=== PATIENT | male | born 1930 | race Caucasian/White ===

== ENCOUNTER 2016-08-23 16:14 | Emergency (ER) | payer MEDICARE ==
[~2016-08-23] VITALS: Ht 177.8 cm; Wt 67.1 kg
--- NOTE | 2016-08-23 16:30 | NUR ---
PT [facility] FOR SOB, COUGH, SATING AT 93% RA. PT AAOX2. NOTED ANXIOUS. NAD NOTED. VSS. SAFETY AND COMFORT MEASURES PROVIDED. WILL MONITOR.
--- NOTE | 2016-08-23 16:40 | NUR ---
IV ACCESS STARTED.
--- NOTE | 2016-08-23 17:07 | NUR ---
ELIUD AT BS.
--- NOTE | 2016-08-23 17:20 | NUR ---
CARDIOGRAPH OPERATOR AT FOR BLOOD DRAW
[2016-08-23 17:34] LABS: BASOPHILS # (AUTO) 0.1 /CMM (0.0-0.2); BASOPHILS % (AUTO) 1.1 % (0.0-2.0); EOSINOPHILS # (AUTO) 0.1 /CMM (0.0-0.7); EOSINOPHILS % (AUTO) 1.2 % (0.0-6.0); HEMATOCRIT 44 % (39-51); HEMOGLOBIN 14.3 g/dL (13.5-17.5); LYMPHOCYTES # (AUTO) 2.1 /CMM (0.8-4.8); LYMPHOCYTES % (AUTO) 24.4 % (20.0-44.0); MEAN CORPUSCULAR HEMOGLOBIN 29 PG (26.0-33.0); MEAN CORPUSCULAR HGB CONC 33 g/dl (31.0-36.0); MEAN CORPUSCULAR VOLUME 89 fL (80-96); MONOCYTES # (AUTO) 1.2 /CMM (0.1-1.30); MONOCYTES % (AUTO) 13.7 % (2.0-12.0); NEUTROPHILS % (AUTO) 59.6 % (43.0-81.0); PLATELET COUNT (AUTO) 220 /CMM (150-450); RDW COEFFICIENT OF VARIATION 13.4 (11.5-15.0); RED BLOOD CELL COUNT(AUTO) 4.91 MIL/uL (4.5-6.0); WHITE BLOOD COUNT (AUTO) 8.5 K/uL (4.3-11.0)
[2016-08-23 17:41] LABS: CALCIUM, SERUM 8.7 mg/dL (8.5-10.1); CARBON DIOXIDE 30 mmol/L (21-32); CHLORIDE 108 mmol/L (98-107); CREATININE 0.8 mg/dL (0.6-1.3); GLUCOSE 101 mg/dL (74-106); POTASSIUM 4.1 mmol/L (3.5-5.1); SODIUM SERUM 142 mmol/L (136-145); UREA NITROGEN, BLOOD 18 mg/dL (7-18)
[2016-08-23 17:49] LABS: TROPONIN I < 0.017 ng/mL (0.00-0.056)
--- NOTE | 2016-08-23 18:34 | NUR ---
CALLED NURSING SUP. FOR MS BED
--- NOTE | 2016-08-23 19:22 | NUR ---
CALLED, LEFT MESSAGE ON VOICEMAIL
--- NOTE | 2016-08-23 19:31 | NUR ---
jus jane talking to dr. radha bravot admission.
--- NOTE | 2016-08-23 19:32 | NUR ---
per dr. radha zhang and f/u with him in his office.
--- NOTE | 2016-08-23 19:35 | NUR ---
CALLED [facility] FOR TRANSPORT BACK TO [facility], ETA 1 HOUR
--- NOTE | 2016-08-23 21:16 | NUR ---
transport at bedside report given to emt transport.
[2016-08-23 21:17] VITALS: BP 137/83
== END 2016-08-23 21:17 | disposition home or self-care (01) ==
LOC: ER 16:21
DX: J18.9 Pneumonia, unspecified organism (principal); F03.90 Unspecified dementia, unspecified severity, without behavioral disturbance, psychotic disturbance, mood disturbance, and anxiety; I10 Essential (primary) hypertension; Z86.73 Personal history of transient ischemic attack (TIA), and cerebral infarction without residual deficits
CPT/HCPCS: 36415; 71010-TC; 80048-TC; 84484-TC; 85025-TC; 87081-TC; A4606; Z7610

== ENCOUNTER 2016-09-21 22:25 | Inpatient (IN) | payer MEDICARE ==
[~2016-09-21] VITALS: Ht 177.8 cm; Wt 59.6 kg
--- NOTE | 2016-09-21 22:30 | NUR ---
PT IZZY WINTER FROM [facility] FOR O2 SAT OF 88. PT AO TO NAME. RR EVEN AND UNLABORED. NO SOB NOTED. NO NVD, NO NAD, PT NOT DIAPHORETIC. PT GOWNED AND PLACED ON MONITOR WAITING FOR MD UMANZOR.
--- NOTE | 2016-09-21 22:50 | NUR ---
XRAY AT BEDSIDE
[2016-09-21] MEDS ORDERED: ASCO500T10 PO (22:53)
[2016-09-21] MEDS ORDERED: TEMA15CA PO (22:53)
[2016-09-21] MEDS ORDERED: HYDR-3326 PO (22:53)
[2016-09-21] MEDS ORDERED: OLAN10TA3 PO (22:53)
[2016-09-21] MEDS ORDERED: METO25TA6 PO (22:53)
[2016-09-21] MEDS ORDERED: ZINC220C6 PO (22:53)
[2016-09-21] MEDS ORDERED: METH5TAB6 PO (22:53)
[2016-09-21] MEDS ORDERED: MULT-70 PO (22:53)
[2016-09-21] MEDS ORDERED: CEPH-570 PO (22:53)
[2016-09-21] MEDS ORDERED: ASPI-991 PO (22:53)
[2016-09-21 23:02] LABS: BASOPHILS # (AUTO) 0.1 /CMM (0.0-0.2); EOSINOPHILS # (AUTO) 0.1 /CMM (0.0-0.7); EOSINOPHILS % (AUTO) 0.6 % (0.0-6.0); HEMATOCRIT 40 % (39-51); LYMPHOCYTES # (AUTO) 3.7 /CMM (0.8-4.8); LYMPHOCYTES % (AUTO) 28.6 % (20.0-44.0); MEAN CORPUSCULAR HEMOGLOBIN 29 PG (26.0-33.0); MEAN CORPUSCULAR HGB CONC 32 g/dl (31.0-36.0); MEAN CORPUSCULAR VOLUME 88 fL (80-96); MONOCYTES # (AUTO) 1.1 /CMM (0.1-1.30); MONOCYTES % (AUTO) 8.2 % (2.0-12.0); NEUTROPHILS % (AUTO) 61.6 % (43.0-81.0); PLATELET COUNT (AUTO) 329 /CMM (150-450); RDW COEFFICIENT OF VARIATION 13.4 (11.5-15.0); RED BLOOD CELL COUNT(AUTO) 4.57 MIL/uL (4.5-6.0); WHITE BLOOD COUNT (AUTO) 12.9 K/uL (4.3-11.0)
[2016-09-21 23:13] LABS: CALCIUM, SERUM 8.6 mg/dL (8.5-10.1); CARBON DIOXIDE 31 mmol/L (21-32); CHLORIDE 108 mmol/L (98-107); CREATININE 0.9 mg/dL (0.6-1.3); GLUCOSE 134 mg/dL (74-106); POTASSIUM 4.4 mmol/L (3.5-5.1); SODIUM SERUM 145 mmol/L (136-145); UREA NITROGEN, BLOOD 14 mg/dL (7-18)
[2016-09-21 23:16] LABS: INR 1.07 (0.87-1.13); PROTHROMBIN TIME 11.5 SECS (9.5-12.7)
[2016-09-21 23:19] LABS: TROPONIN I < 0.017 ng/mL (0.00-0.056)
[2016-09-21 23:24] LABS: LACTIC ACID 2.6 mmol/L (0.4-2.0)
[2016-09-21 23:27] LABS: ALANINE AMINOTRANSFERASE 19 U/L (12-78); ALBUMIN 2.2 g/dL (3.4-5.0); ALKALINE PHOSPHATASE 78 U/L (46-116); ASPARTATE AMINOTRANSFERASE 19 U/L (15-37); B-TYPE NATRIURETIC PEPTIDE 843 PG/ML (0-125); BILIRUBIN,DIRECT 0.1 mg/dL (0.0-0.2); BILIRUBIN,TOTAL 0.7 mg/dL (0.2-1.0)
[2016-09-21] MEDS ORDERED: LIDOCAINE 2% JEL UROJET 10 ML MM ONE (23:51)
[2016-09-22] VITALS (8 sets, daily range): BP systolic 98–139; BP diastolic 53–67
[2016-09-22] MEDS ORDERED: LIDOCAINE 2% JEL UROJET 10 ML MM ONE
--- NOTE | 2016-09-22 | NUR ---
URINE COLLECTED. SENT TO LAB
[2016-09-22 00:12] LABS: APPEARANCE,URINE TURBID (CLEAR); BILIRUBIN,URINE NEGATIVE (NEGATIVE); BLOOD, URINE 3+ Ery/uL (NEGATIVE); COLOR,URINE YELLOW (YELLOW); KETONES,URINE NEGATIVE (NEGATIVE); LEUKOCYTE ESTERASE ,URINE NEGATIVE (NEGATIVE); NITRITE, URINE NEGATIVE (NEGATIVE); PROTEIN,URINE 1+ mg/dl (NEGATIVE); UGLUCOSE NEGATIVE (NEGATIVE); UROBILINOGEN,URINE 0.2 EU/dL (0.2)
[2016-09-22 00:20] LABS: ADD URINE CULTURE NO; BACTERIA,URINE Rare /HPF (None Seen); RBC,URINE 51-80 /HPF (0-2); SQUAMOUS EPITHELIAL CELL,UR Few /HPF (None Seen)
--- NOTE | 2016-09-22 00:48 | NUR ---
REPORT GIVEN TO [facility] VILLARREAL FOR TELE BED 328-1
--- NOTE | 2016-09-22 01:24 | NUR ---
PT TRASNFERED PER ACLS PROTOCOL.
--- NOTE | 2016-09-22 01:30 | NUR ---
RN NOTES: 0126AM PATIENT WAS ADMITTED FROM ER VIA GURNEY ACCOMPANIED BY RN WITH DX;CHF EXACERBATION, CHIEF COMPLAIN OF DESATURATION,O2 SAT DROP TO 88%,HE WAS FROM [facility] ON AT 3-4L/MIN VIA NASAL CANNULA,SPO2 97%, NO SIGN OF RESPIRATORY DISTRESS NOTED AT THIS TIME,TELEMETRY PATIENT, ON BEHAVIORAL SCIENCES DEPARTMENT CHAIR,A.FIB RATE-90(IRREGULAR),A/OX1,WITH PERIODS OF FORGETFULNESS, UNABLE TO RECALL HISTORY UPON INTERVIEW, ABLE TO MAKE NEEDS KNOWN, HIGH RISK FOR FALL;CALL LIGHT WITH IN REACH,FALL, SAFETY AND ASPIRATION PRECAUTION OBSERVE.IV CANNULA ON THE LEFT AC G#20,BODY ASSESSMENT DONE;EDEMA ON RLE(++),LLE(+),MULTIPLE SKIN DISCOLORATION AND OLD SCABS ON BUE, MULTIPLE BROWN PIGMENTATION ON THE ENTIRE BACK AND BOTH LOWER EXTREMITY, SKIN TEAR ON PEG, DISCOLORATION AND SCABS ON THE CHEST AREA AND LEFT ELBOW, BLANCHABLE REDNESS ON THE SACROCOCCYX AREA, REDNESS ON THE PENILE AREA, LEFT HEEL DISCOLORATION(BLACKISH/PURPLE) AND OPEN SORE ON THE RIGHT ANKLE.WILL REFER TO WOUND NURSE FOR FURTHER EVALUATION AND TREATMENT.
[2016-09-22] MEDS ORDERED: FUROSEMIDE 40 MG/4 ML VIAL ONE (02:37)
[2016-09-22] MEDS: FUROSEMIDE 40 MG/4 ML VIAL IV SCH ×5 (02:53→21:43)
[2016-09-22] MEDS ORDERED: IPRATROPIUM NEB FS 0.5 MG/2.5 ML AMPUL.NEB NEB PRN (03:00)
[2016-09-22] MEDS ORDERED: ALBUTEROL FS 2.5 MG/3 ML VIAL.NEB NEB PRN (03:00)
--- NOTE | 2016-09-22 03:06 | NUR ---
RN NOTES; MARLENY GIVEN,BP-122/65 OR-87, ON CLOSE MONITORING.CALL LIGHT WITHIN REACH.
--- NOTE | 2016-09-22 05:05 | NUR ---
RN NOTES; SLEEP WELL, NO CALLS MADE, NO SIGN OF PAIN OR RESPIRATORY DISCOMFORT, LATEST BP-139/63 HI-80 SPO2-98%,CALL LIGHT WITHIN REACH.KEPT IN COMFORTABLE POSITION.
--- NOTE | 2016-09-22 06:46 | NUR ---
RN NOTES; NO RESPIRATORY DISTRESS NOTED FROM THE TIME OF ADMISSION, KEEP ON MONITOR,TELE-A.FIB. RATE RANGE FROM 90-100,NO PAIN OR DISCOMFORT,ENDORSED TO NEXT SHIFT FOR CONTINUITY OF CARE, CALL LIGHT WITHIN REACH, BED LOW AND LOCK,FALL PRECAUTION OBSERVED.
--- NOTE | 2016-09-22 07:30 | NUR ---
AMMONIA SOLUTION PREPARER NOTES RECEIVED PT ON BED, ASLEEP BUT EASILY AROUSABLE, BREATHING EVEN AND NON LABORED. NO S/S OF ANY RESPIRATORY DISTRESS OR SOB NOTED. WITH O2 AT 2LPM VIA NC O2 SAT 97%. WITH LAC #18 INTACT AND PATENT. CALL LIGHT WITHIN REACH, WILL CONTINUE TO MONITOR.
[2016-09-22] MEDS ORDERED: CEPHALEXIN MONOHYDRATE 500 MG CAPSULE PO SCH (09:00)
--- NOTE | 2016-09-22 09:00 | NUR ---
MS RN NOTES ALL DUE MEDS GIVEN. S/B DR. MIX WITH NEW ORDERS MADE AND CARRIED OUT.
[2016-09-22 09:19] LABS: BASOPHILS # (AUTO) 0.1 /CMM (0.0-0.2); BASOPHILS % (AUTO) 0.6 % (0.0-2.0); EOSINOPHILS # (AUTO) 0.1 /CMM (0.0-0.7); EOSINOPHILS % (AUTO) 0.6 % (0.0-6.0); HEMATOCRIT 39 % (39-51); HEMOGLOBIN 12.6 g/dL (13.5-17.5); LYMPHOCYTES % (AUTO) 19.9 % (20.0-44.0); MEAN CORPUSCULAR HEMOGLOBIN 29 PG (26.0-33.0); MEAN CORPUSCULAR HGB CONC 33 g/dl (31.0-36.0); MEAN CORPUSCULAR VOLUME 89 fL (80-96); MONOCYTES # (AUTO) 1.3 /CMM (0.1-1.30); MONOCYTES % (AUTO) 12.7 % (2.0-12.0); NEUTROPHILS # (AUTO) 6.7 /CMM (1.8-8.9); NEUTROPHILS % (AUTO) 66.2 % (43.0-81.0); PLATELET COUNT (AUTO) 279 /CMM (150-450); RDW COEFFICIENT OF VARIATION 13.4 (11.5-15.0); RED BLOOD CELL COUNT(AUTO) 4.36 MIL/uL (4.5-6.0); WHITE BLOOD COUNT (AUTO) 10.1 K/uL (4.3-11.0)
[2016-09-22] MEDS: MULTIVITAMINS,THERAPEUTIC 1 UDTAB TABLET PO SCH (09:30)
[2016-09-22] MEDS: ASCORBIC ACID 500 MG TABLET PO SCH ×2 (09:30→17:25)
[2016-09-22] MEDS: ASPIRIN EC 81 MG TABLET.DR PO SCH (09:30)
[2016-09-22] MEDS: METHIMAZOLE (5MG) 5 MG TABLET PO SCH (09:30)
[2016-09-22] MEDS: ZINC SULFATE 220 MG CAPSULE PO SCH (09:30)
[2016-09-22] MEDS: METOPROLOL TARTRATE 25 MG TABLET PO SCH ×2 (09:31→17:00)
[2016-09-22] MEDS: HYDROCODONE/APAP 5/325MG 1 EACH TABLET PO SCH ×2 (09:31→17:24)
[2016-09-22 09:59] LABS: CALCIUM, SERUM 8.3 mg/dL (8.5-10.1); CREATININE 0.8 mg/dL (0.6-1.3); MAGNESIUM 2.1 mg/dL (1.8-2.4); PHOSPHORUS 3.4 mg/dL (2.5-4.9)
[2016-09-22] MEDS ORDERED: FUROSEMIDE 40 MG/4 ML VIAL IV SCH (11:00)
[2016-09-22 11:20] LABS: CHOLESTEROL 134 mg/dL (<200); HDL CHOLESTEROL 28 mg/dL (40-60); LDL 85 mg/dL (0-99); THYROID STIMULATING HORMONE 3.247 uIU/mL (0.358-3.74); TRIGLYCERIDES 72 mg/dL (30-150); TROPONIN I < 0.017 ng/mL (0.00-0.056)
[2016-09-22] MEDS: ENOXAPARIN SODIUM 40 MG/0.4 ML DISP.SYRIN SQ SCH (11:44)
[2016-09-22] MEDS: CEPHALEXIN MONOHYDRATE 500 MG CAPSULE PO SCH ×3 (12:40→21:39)
[2016-09-22] MEDS ORDERED: PIPERACILLIN /TAZOBACTAM 3.375 G in IV D5W 50 ML IV SCH (13:00)
[2016-09-22] MEDS ORDERED: SECONDARY IV SET 1 EA INFUS.SET MC ONE (13:05)
[2016-09-22] MEDS ORDERED: IV SET PRIMARY PUMP SET 1 EA INFUS.SET MC ONE (13:05)
[2016-09-22] MEDS ORDERED: IV NS 0.9% 250 ML IV ONE (13:05)
[2016-09-22] MEDS: PIPERACILLIN /TAZOBACTAM 3.375 G in IV D5W 50 ML IV SCH ×2 (13:38→17:27)
--- NOTE | 2016-09-22 15:00 | NUR ---
TEAM TRUCK DRIVER NOTES PATIENT TURN AND REPOSITION Q2H FOR COMFORT. MADE HIM COMFORTABLE CLEAN AND DRY. WILL CONTINUE TO MONITOR.
--- NOTE | 2016-09-22 18:00 | NUR ---
INDUSTRIAL ROOF PLUMBER NOTES LASIX 40 MG IV HELD, BP 101/56.
--- NOTE | 2016-09-22 18:00 | NUR ---
PAPER CONE GRADER NOTES SON CJ VERBALIZED UNDERSTANDING ON THE PROCEDURE.
--- NOTE | 2016-09-22 18:00 | NUR ---
BOARDER MACHINE NOTES PATIENT FOR ULTRASOUND GUIDED THORACENTESIS RIGHT LUNG TOMORROW. OBTAINED VERBAL CONSENT FROM HIS SON CJ.
--- NOTE | 2016-09-22 19:30 | NUR ---
COMMISSARY WORKER INITIAL NOTE RECEIVED PT AWAKE AND ALERT, ORIENTED X1, ABLE TO VERBALIZE SIMPLE NEEDS, NO PAIN OR RESPIRATORY DISTRESS NOTED DURING PHYSICAL ASSESSMENT, PT CLEAN/DRY AND COMFORTABLE, WILL ATTEND TO NEEDS HOURLY AND NEEDED.
--- NOTE | 2016-09-22 19:33 | NUR ---
CLINIC COORDINATOR NOTES ENDORSED TO INCOMING SHIFT FOR CONTINUITY OF CARE. NEEDS ATTENDED AND ANTICIPATED.
[2016-09-22] MEDS: OLANZAPINE 10 MG TABLET PO SCH (21:39)
[2016-09-22] MEDS ORDERED: TEMAZEPAM 15 MG CAPSULE PO SCH (22:00)
[2016-09-23] VITALS (8 sets, daily range): BP systolic 96–124; BP diastolic 52–77
[2016-09-23] MEDS: PIPERACILLIN /TAZOBACTAM 3.375 G in IV D5W 50 ML IV SCH ×5 (00:22→23:21)
--- NOTE | 2016-09-23 06:59 | NUR ---
FINANCIAL CENTER MANAGER CLOSING NOTE PT REMAINED STABLE DURING CASTING HOUSE LABORER, NO SIGNIFICANT CHANGES NOTED, WILL ENDORSE TO INCOMING NURSE FOR FCO.
[2016-09-23 07:05] LABS: BASOPHILS % (AUTO) 0.5 % (0.0-2.0); EOSINOPHILS # (AUTO) 0.1 /CMM (0.0-0.7); EOSINOPHILS % (AUTO) 1.5 % (0.0-6.0); HEMATOCRIT 38 % (39-51); HEMOGLOBIN 12.2 g/dL (13.5-17.5); LYMPHOCYTES # (AUTO) 1.8 /CMM (0.8-4.8); LYMPHOCYTES % (AUTO) 20.2 % (20.0-44.0); MEAN CORPUSCULAR HEMOGLOBIN 29 PG (26.0-33.0); MEAN CORPUSCULAR HGB CONC 32 g/dl (31.0-36.0); MEAN CORPUSCULAR VOLUME 89 fL (80-96); MONOCYTES % (AUTO) 10.9 % (2.0-12.0); NEUTROPHILS % (AUTO) 66.9 % (43.0-81.0); PLATELET COUNT (AUTO) 284 /CMM (150-450); RDW COEFFICIENT OF VARIATION 13.5 (11.5-15.0); RED BLOOD CELL COUNT(AUTO) 4.27 MIL/uL (4.5-6.0)
[2016-09-23 07:11] LABS: ALANINE AMINOTRANSFERASE 15 U/L (12-78); ALBUMIN 1.9 g/dL (3.4-5.0); ALKALINE PHOSPHATASE 67 U/L (46-116); ASPARTATE AMINOTRANSFERASE 15 U/L (15-37); BILIRUBIN,TOTAL 0.8 mg/dL (0.2-1.0); CALCIUM, SERUM 8.2 mg/dL (8.5-10.1); CARBON DIOXIDE 36 mmol/L (21-32); CHLORIDE 106 mmol/L (98-107); CREATININE 0.9 mg/dL (0.6-1.3); GLUCOSE 93 mg/dL (74-106); MAGNESIUM 2.1 mg/dL (1.8-2.4); PHOSPHORUS 2.6 mg/dL (2.5-4.9); POTASSIUM 3.3 mmol/L (3.5-5.1); SODIUM SERUM 145 mmol/L (136-145); TOTAL PROTEIN, SERUM 6.4 g/dL (6.4-8.2); UREA NITROGEN, BLOOD 14 mg/dL (7-18)
--- NOTE | 2016-09-23 07:15 | NUR ---
television anchor Initial notes Received patient in bed, asleep, head of bed elevated, no SOB or distress noted. On 02 @ 2lpm via NC and tolerated well. Alert and oriented x 1, with confusion. IV intact and patent HL only. Kept patient clean and comfortable in bed, call light with in patient reach, will continue to monitor accordingly. On tele monitor Afib with heart rate of 97.
[2016-09-23 07:16] LABS: TROPONIN I < 0.017 ng/mL (0.00-0.056)
[2016-09-23] MEDS: PANTOPRAZOLE 40 MG TABLET.DR PO SCH (09:07)
[2016-09-23] MEDS: HYDROCODONE/APAP 5/325MG 1 EACH TABLET PO SCH (09:07)
[2016-09-23] MEDS: MULTIVITAMINS,THERAPEUTIC 1 UDTAB TABLET PO SCH (09:07)
[2016-09-23] MEDS: METHIMAZOLE (5MG) 5 MG TABLET PO SCH (09:07)
[2016-09-23] MEDS: ASPIRIN EC 81 MG TABLET.DR PO SCH (09:07)
[2016-09-23] MEDS: ZINC SULFATE 220 MG CAPSULE PO SCH (09:07)
[2016-09-23] MEDS: ASCORBIC ACID 500 MG TABLET PO SCH ×2 (09:07→16:44)
[2016-09-23] MEDS: METOPROLOL TARTRATE 25 MG TABLET PO SCH ×2 (09:08→16:45)
[2016-09-23] MEDS: CEPHALEXIN MONOHYDRATE 500 MG CAPSULE PO SCH ×2 (09:12→12:11)
[2016-09-23] MEDS: POTASSIUM CHLORIDE 20 MEQ TAB.PRT.SR PO SCH ×3 (09:12→12:11)
[2016-09-23] MEDS: ENOXAPARIN SODIUM 40 MG/0.4 ML DISP.SYRIN SQ SCH (10:29)
--- NOTE | 2016-09-23 10:55 | NUR ---
WOUND CARE CONSULT: PATIENT SEEN AND SKIN ASSESSMENT DONE. PATIENT IMMOBILE, INCONTINENT, DANTE 14, NURSING STAFF ORDERED JO ISOFLEX CARMEN BED AND WILL BE PLACED WHEN AVAILABLE IN THE UNIT. SEE TODAY'S SKIN ASSESSMENT IN PCS ALONG WITH RECOMMENDATIONS. RECOMMEND MOISTURE PROTECTION WITH Z GUARD AND PRESSURE PREVENTION MEASURES ORDERED. ALL DISCUSSED WITH NURSING STAFF. MD IN AGREEMENT WITH PLAN OF CARE.
[2016-09-23] MEDS ORDERED: Z GUARD REMEDY 2 OZ OINT TP PRN (11:00)
[2016-09-23] MEDS: HYDROGEL DRESSING 90 GM TUBE TP SCH (11:30)
[2016-09-23] MEDS: Z GUARD REMEDY 2 OZ OINT TP SCH ×2 (11:30→16:45)
[2016-09-23 13:42] LABS: GLUCOSE,BODY FLUID 129 mg/dL; PROTEIN, BODY FLUID 3.9 G/DL
[2016-09-23] MEDS: NEOMY SULF/BACITRAC ZN/POLY 15 GM TUBE TP SCH (15:17)
--- NOTE | 2016-09-23 15:31 | NUR ---
MUD ENGINEER NOTES' Dr. Maldonado came seen and examined the patient and informed regarding patient diet and ordered to change it to Puree diet 2g Na. All orders carried out and noted. Will continue to monitor accordingly.
[2016-09-23 16:28] LABS: TOTAL VOLUME,BODY FLUID 1460 mL; WBC, BODY FLUID 410 /cu. mm. (0-200)
[2016-09-23] MEDS ORDERED: TEMAZEPAM 15 MG CAPSULE PO PRN (16:30)
[2016-09-23] MEDS: LACTOBACILLUS RHAMNOSUS GG 1 EACH CAP.SPRINK PO SCH (16:44)
[2016-09-23 16:50] LABS: POLYNUCLEAR, BODY FLUID 25 % (0-25)
[2016-09-23 16:51] LABS: MONOCYTES,BODY FLUID 0 %
[2016-09-23] MEDS ORDERED: HYDROCODONE/APAP 5/325MG 1 EACH TABLET PO PRN (18:00)
[2016-09-23] MEDS: BOOST PLUS FOOD-CHOCLATE 237 ML BOX PO SCH (18:21)
--- NOTE | 2016-09-23 19:16 | NUR ---
MACHINERY CLEANER CLOSING NOTES All needs provided, attended, and anticipated. On tele monitor Afib heart rate of 91. Kept patient clean and comfortable in bed, call light with in patient reach, will continue to monitor accordingly. Endorsed to next shift RN to continue care.
--- NOTE | 2016-09-23 20:00 | NUR ---
PATIENT IN BED, ALERT AND ORIENTED X1, NO SOB, ON 2LPM VIA NC, 02 SAT 95%, ABLE TO ANSWER SIMPLE QUESTIONS. RIGHT AC SALINE IS PATENT AND INTACT. ON ASPIRATION PRECAUTION, KEPT HOB ELEVATED, ON PUREED DIET, ST EVAL IN AM. NEEDS ATTENDED, KEPT SAFE AND COMFORTABLE, CALL LIGHT WITHIN REACH.
[2016-09-23] MEDS: OLANZAPINE 10 MG TABLET PO SCH (21:37)
[2016-09-24] VITALS: BP 132/59
[2016-09-24 04:00] VITALS: BP 138/80
[2016-09-24 04:13] VITALS: BP 138/80
[2016-09-24] MEDS: PIPERACILLIN /TAZOBACTAM 3.375 G in IV D5W 50 ML IV SCH ×4 (05:04→23:15)
--- NOTE | 2016-09-24 06:44 | NUR ---
PATIENT IS ALERT AND AWAKE, NO SOB, ON 2LPM VIA NC, NOT IN APPARENT PAIN, NO FACIAL GRIMACING, NO ADVERSE CHANGE OF CONDITION DURING SHIFT, WITH EPISODES OF RESTLESSNESS, LEFT AC SALINE LOCK IS PATENT, ALL DUE MEDICATIONS GIVEN, KEPT SAFE AND COMFORTABLE, CALL LIGHT WITHIN REACH.
[2016-09-24 07:06] VITALS: BP 133/79
--- NOTE | 2016-09-24 07:20 | NUR ---
perfume maker initial notes Received patient in bed, asleep, head of bed elevated, no SOB or distress noted. On 02 @ 2lpm via NC and tolerated well. Saturation of 98%. IV intact and patent. Kept patient clean and comfortable in bed, call light within patient reach, will continue to monitor accordingly. On tele monitor Afib heart rate of 90.
[2016-09-24 07:51] LABS: BASOPHILS # (AUTO) 0.1 /CMM (0.0-0.2); BASOPHILS % (AUTO) 0.9 % (0.0-2.0); EOSINOPHILS % (AUTO) 0.2 % (0.0-6.0); HEMATOCRIT 40 % (39-51); LYMPHOCYTES # (AUTO) 1.1 /CMM (0.8-4.8); LYMPHOCYTES % (AUTO) 10.9 % (20.0-44.0); MEAN CORPUSCULAR HEMOGLOBIN 29 PG (26.0-33.0); MEAN CORPUSCULAR HGB CONC 33 g/dl (31.0-36.0); MEAN CORPUSCULAR VOLUME 88 fL (80-96); MONOCYTES % (AUTO) 9.8 % (2.0-12.0); NEUTROPHILS # (AUTO) 7.9 /CMM (1.8-8.9); NEUTROPHILS % (AUTO) 78.2 % (43.0-81.0); PLATELET COUNT (AUTO) 294 /CMM (150-450); RDW COEFFICIENT OF VARIATION 13.3 (11.5-15.0); RED BLOOD CELL COUNT(AUTO) 4.49 MIL/uL (4.5-6.0); WHITE BLOOD COUNT (AUTO) 10.1 K/uL (4.3-11.0)
[2016-09-24 08:05] LABS: CALCIUM, SERUM 8.5 mg/dL (8.5-10.1); CREATININE 0.9 mg/dL (0.6-1.3); POTASSIUM 4.1 mmol/L (3.5-5.1)
[2016-09-24 08:13] LABS: INR 1.16 (0.87-1.13); PROTHROMBIN TIME 12.5 SECS (9.5-12.7)
[2016-09-24] MEDS: ASPIRIN EC 81 MG TABLET.DR PO SCH (08:34)
[2016-09-24] MEDS: METHIMAZOLE (5MG) 5 MG TABLET PO SCH (08:34)
[2016-09-24] MEDS: ZINC SULFATE 220 MG CAPSULE PO SCH (08:34)
[2016-09-24] MEDS: MULTIVITAMINS,THERAPEUTIC 1 UDTAB TABLET PO SCH (08:34)
[2016-09-24] MEDS: ASCORBIC ACID 500 MG TABLET PO SCH ×2 (08:34→16:57)
[2016-09-24] MEDS: PANTOPRAZOLE 40 MG TABLET.DR PO SCH (08:34)
[2016-09-24] MEDS: LACTOBACILLUS RHAMNOSUS GG 1 EACH CAP.SPRINK PO SCH ×2 (08:34→16:57)
[2016-09-24] MEDS: HYDROGEL DRESSING 90 GM TUBE TP SCH (08:35)
[2016-09-24] MEDS: METOPROLOL TARTRATE 25 MG TABLET PO SCH ×3 (08:35→16:57)
[2016-09-24] MEDS: Z GUARD REMEDY 2 OZ OINT TP SCH ×2 (08:35→16:58)
[2016-09-24] MEDS: NEOMY SULF/BACITRAC ZN/POLY 15 GM TUBE TP SCH (08:36)
[2016-09-24] MEDS: BOOST PLUS FOOD-CHOCLATE 237 ML BOX PO SCH ×2 (08:36→16:57)
[2016-09-24] MEDS: ENOXAPARIN SODIUM 40 MG/0.4 ML DISP.SYRIN SQ SCH (10:22)
[2016-09-24 16:00] VITALS: BP 137/100
--- NOTE | 2016-09-24 19:15 | NUR ---
ms rn closing notes All needs provided, attended, and anticipated. kept patient clean and comfortable in bed, call light with in patient reach, will continue to monitor accordingly. Endorsed to next shift RN to continue care.
--- NOTE | 2016-09-24 20:07 | NUR ---
RECEIVED PATIENT IN BED, ALERT AND ORIENTED X3, CALM, NO SOB, TOLERATING ROOM AIR, 02 SAT 95%, DENIES ANY PAIN AT THIS TIME, RIGHT HEEL WOUND DRESSING IS SECURED, WOUND VAC IN GOOD WORKING CONDITION, NO OUTPUT YET, REPOSITIONED FOR COMFORT, CALL LIGHT WITHIN REACH. Addendum: 09/24/16 at 2009 by ALEX COPE RN PLEASE DISREGARD ABOVE CHARTING, NOT INTENDED FOR ABOVE PATIENT. SEE NEXT NOTES
--- NOTE | 2016-09-24 20:10 | NUR ---
RECEIVED PATIENT IN BED, ALERT AND ORIENTED TO NAME ONLY, CONFUSED, ABLE TO ANSWER SIMPLE QUESTIONS, WITH EPISODES FO RESTLESSNESS, REMOVING NC, ABDOMEN SOFT AND NON-TENDER, ON ASPIRATION PRECAUTION, LEFT AC SALINE LOCK IS PATENT, KEPT SAFE AND COMFORTABLE, SITTER AT THE BEDSIDE. CALL LIGHT WITHIN REACH.
[2016-09-24] MEDS: OLANZAPINE 10 MG TABLET PO SCH (21:17)
[2016-09-24 22:30] VITALS: BP 118/79
--- NOTE | 2016-09-24 22:55 | NUR ---
PATIENT UNABLE TO SLEEP, GIVEN RESTORIL 15 MG PO PRN, KEPT COMFORTABLE.
--- NOTE | 2016-09-24 23:27 | NUR ---
TEMPERATURE TAKEN AFTER TYLENOL, 98.3F, KEPT COMFORTABLE, CALL LIGHT WITHIN REACH. Addendum: 09/24/16 at 2328 by ALEX COPE RN PLEASE DISREGARD ABOVE NOTES, NOT FOR INTENDED FOR PATIENT
--- NOTE | 2016-09-25 00:52 | NUR ---
PATIENT IS FULL CODE SECONDARY TO NO DOCUMENTATION TO SAY OTHERWISE. VERIFIED WITH [facility], PER RECYCLING ASSISTANT, PATIENT HAS NO DOCUMENTATION FOR DNR.
[2016-09-25] MEDS: PIPERACILLIN /TAZOBACTAM 3.375 G in IV D5W 50 ML IV SCH ×3 (05:19→17:08)
--- NOTE | 2016-09-25 06:44 | NUR ---
PATIENT IS ALERT AND AWAKE, ON 2LPM VIA NC, NOT IN APPARENT PAIN, NO FACIAL GRIMACING, NO BEHAVIORAL DISTURBANCE, ABLE TO TOLERATE CRUSHED MEDICATION WITH APPLE SAUCE, NO COUGHING DURING SWALLOWING, PROVIDED GOOD PERINEAL CARE, SLEPT FOR 8.5 HOURS, NEEDS ATTENDED, CALL LIGHT WITHIN REACH, SITTER AT THE BEDSIDE.
--- NOTE | 2016-09-25 07:28 | NUR ---
MS RN NOTES REPORT RECEIVED AT THE BEDSIDE. PATIENT IS SLEEPING. NO SOB OR DISTRESS NOTED AT THIS TIME. PATIENT DOES NOT APPEAR TO BE IN PAIN, NO FACIAL GRIMACE NOTED. BED IS IN THE LOWEST POSITION, SITTER IS AT THE BEDSIDE. WILL CONTINUE TO MONITOR.
[2016-09-25 08:00] VITALS: BP 125/72
[2016-09-25] MEDS: ZINC SULFATE 220 MG CAPSULE PO SCH (08:07)
[2016-09-25] MEDS: MULTIVITAMINS,THERAPEUTIC 1 UDTAB TABLET PO SCH (08:07)
[2016-09-25] MEDS: ASCORBIC ACID 500 MG TABLET PO SCH ×2 (08:07→16:34)
[2016-09-25] MEDS: BOOST PLUS FOOD-CHOCLATE 237 ML BOX PO SCH ×2 (08:07→16:33)
[2016-09-25] MEDS: LACTOBACILLUS RHAMNOSUS GG 1 EACH CAP.SPRINK PO SCH ×2 (08:07→16:34)
[2016-09-25] MEDS: METOPROLOL TARTRATE 25 MG TABLET PO SCH ×2 (08:08→16:34)
[2016-09-25] MEDS: METHIMAZOLE (5MG) 5 MG TABLET PO SCH (08:08)
[2016-09-25] MEDS: PANTOPRAZOLE 40 MG TABLET.DR PO SCH (08:08)
[2016-09-25] MEDS: ASPIRIN EC 81 MG TABLET.DR PO SCH (08:08)
[2016-09-25] MEDS: Z GUARD REMEDY 2 OZ OINT TP SCH ×2 (08:08→16:34)
[2016-09-25] MEDS: HYDROGEL DRESSING 90 GM TUBE TP SCH (08:09)
--- NOTE | 2016-09-25 08:11 | NUR ---
MS RN NOTES NEOSPORIN IS NOT AT BEDSIDE OR IN PATIENT CASET. CALLED PHARMACY FOR A REPLACEMENT.
[2016-09-25] MEDS: NEOMY SULF/BACITRAC ZN/POLY 15 GM TUBE TP SCH (09:21)
[2016-09-25] MEDS: ENOXAPARIN SODIUM 40 MG/0.4 ML DISP.SYRIN SQ SCH (11:09)
--- NOTE | 2016-09-25 18:49 | NUR ---
MS RN CLOSING NOTE NO SIGNIFICANT CHANGES IN PATIENT CONDITION THROUGHOUT THE SHIFT. NO SOB OR DISTRESS NOTED AT THIS TIME. PATIENT DENIES PAIN. PATIENT DUE FOR DC TO [facility] TONIGHT AROUND 2029. REPORT CALLED TO [facility]. SON, CJ, IS ALREADY INFORMED OF PATIENT TRANSFER. BED IN A LOW POSITION, CALL LIGHT WITHIN PATIENT REACH, WILL ENDORSE FOR FCO.
--- NOTE | 2016-09-25 19:30 | NUR ---
MS/RN OPENING NOTES PT AWAKE, SITTER AT BEDSIDE. ON 2LPM O2 VIA NC, BREATHING EVEN AND UNLABORED. NO S/S OF SOB OR DISTRESS NOTED. NO FACIAL GRIMACING OR SIGNS OF PAIN. IV TO LAC PATENT AND INTACT. EXTREMITIES OFFLOADED. BED IN LOW/LOCKED POSITION, WITH CALL LIGHT IN REACH. BED RAILS UPX3 WITH ALARM ON. PT PLANNING FOR DC THIS EVENING AROUND 2030 TO [facility]. WILL CONTINUE TO MONITOR
[2016-09-25 20:00] VITALS: BP 131/69
--- NOTE | 2016-09-25 21:25 | NUR ---
MS/RN NOTES PT DISCHARGED VIA GURNEY WITH EMT IN STABLE CONDITION. IV TO LAC REMAINS INTACT. ID BAND REMOVED. DISCHARGE PAPERWORK PROVIDED TO EMT. BELONGING TAKEN WITH PT.
== END 2016-09-25 21:30 | DRG 291 ==
LOC: ER 22:27 → MED 09-22 00:50 → TELE 09-22 01:28 → MED 09-24 11:27
PROVIDERS: ADMIT Internal Medicine; ATTEND Internal Medicine
PROC: 0W993ZX Drainage of Right Pleural Cavity, Percutaneous Approach, Diagnostic (ICD-10-PCS; principal; 2016-09-23)
DX: I11.0 Hypertensive heart disease with heart failure (principal); J96.01 Acute respiratory failure with hypoxia; J69.0 Pneumonitis due to inhalation of food and vomit; E87.2 Acidosis; J90 Pleural effusion, not elsewhere classified; E44.0 Moderate protein-calorie malnutrition; E87.0 Hyperosmolality and hypernatremia; I50.33 Acute on chronic diastolic (congestive) heart failure; I48.91 Unspecified atrial fibrillation; F03.90 Unspecified dementia, unspecified severity, without behavioral disturbance, psychotic disturbance, mood disturbance, and anxiety; F09 Unspecified mental disorder due to known physiological condition; Z86.73 Personal history of transient ischemic attack (TIA), and cerebral infarction without residual deficits; E86.0 Dehydration; E03.9 Hypothyroidism, unspecified; G89.4 Chronic pain syndrome; R31.9 Hematuria, unspecified; D63.8 Anemia in other chronic diseases classified elsewhere; E55.9 Vitamin D deficiency, unspecified; G35 Multiple sclerosis; I73.9 Peripheral vascular disease, unspecified; D72.829 Elevated white blood cell count, unspecified; E87.6 Hypokalemia; L98.8 Other specified disorders of the skin and subcutaneous tissue; S41.102A Unspecified open wound of left upper arm, initial encounter; X58.XXXA Exposure to other specified factors, initial encounter; Y93.9 Activity, unspecified; Y92.89 Other specified places as the place of occurrence of the external cause; Y99.9 Unspecified external cause status; S40.022A Contusion of left upper arm, initial encounter; S40.021A Contusion of right upper arm, initial encounter; Z66 Do not resuscitate; L89.520 Pressure ulcer of left ankle, unstageable; L89.620 Pressure ulcer of left heel, unstageable; R13.10 Dysphagia, unspecified
CPT/HCPCS: 36415; 71010-TC; 76942-TC; 80048-TC; 80053-TC; 80061-TC; 80076-TC; 81000-TC; 82306; 83605-TC; 83735-TC; 83880; 84100-TC; 84439-TC; 84443-TC; 84484-TC; 85025-TC; 85730-TC; 87040-TC; 87070-TC; 87075-TC; 87081-TC; 87086-TC; 87102-TC; 89051-TC; 92521; 92526; 93307-TC; 94799-TC; 97001-TC; A4606; A6248; J1650; J1940; J2543; J3490; J7050; J7060; Z7610

== ENCOUNTER 2016-10-14 20:54 | Inpatient (IN) | payer MEDICARE ==
[~2016-10-14] VITALS: Ht 175.3 cm; Wt 60.3 kg
[~2016-10-14 20:54] MED LIST: ASCO500T10 PO; ASPI-991 PO; CEPH-570 PO; HYDR-3326 PO; METH5TAB6 PO; METO25TA6 PO; MULT-70 PO; OLAN10TA3 PO; TEMA15CA PO; ZINC220C6 PO
--- NOTE | 2016-10-14 21:00 | NUR ---
PT BIBA, PT A/OX1 BUT PER EMS THAT IS BASELINE PER SNF, PT IS BREATHING EFFORTLESSLY ON 2L O2 ON NC, PT IS A DNR, COMFORT MEASURES ONLY, PT BROUGHT HERE FOR LOW BP, PT ON MONITOR, IN MD JAMILAH IN ROOM WILL CONTINUE TO MONITOR.
[2016-10-14] MEDS ORDERED: IV NS 0.9% 1,000 ML IV ONE (21:30)
--- NOTE | 2016-10-14 22:04 | NUR ---
PATIENT'S ZOE CORONA JR - [id number] Addendum: 10/14/16 at 2207 by JUDIE ORIGINAL NUMBER PROVIDED IS ZOE'S WORK NUMBER - CELL IS [id number]
--- NOTE | 2016-10-14 22:35 | NUR ---
MD MADE AWARE OF PT BP, NO ORDERS AT THIS TIME, IV PLACED AND LABS DRAWN WILL CONTINUE TO MONITOR.
--- NOTE | 2016-10-14 22:37 | NUR ---
MD PANDA TALKED TO MD CALLAWAY, PT PRIMARY, MD PANDA WAS INFORMED TO DO LABS AND MD PANDA TOLD MD CALLAWAY THAT PT IS IN AFIB, MD PANDA STATES THAT HE WANTS TO START AMIO DRIP, MD CALLAWAY AGREKORY, PT FAMILY IS NOT ABLE TO BE CONTACTED AT THIS TIME, WILL CONTINUE TO MONITOR.
[2016-10-14 22:50] LABS: EOSINOPHILS % (AUTO) 0.1 % (0.0-6.0); HEMATOCRIT 37 % (39-51); HEMOGLOBIN 11.8 g/dL (13.5-17.5); LYMPHOCYTES # (AUTO) 1.4 /CMM (0.8-4.8); LYMPHOCYTES % (AUTO) 3.4 % (20.0-44.0); MEAN CORPUSCULAR HEMOGLOBIN 28 PG (26.0-33.0); MEAN CORPUSCULAR HGB CONC 32 g/dl (31.0-36.0); MEAN CORPUSCULAR VOLUME 88 fL (80-96); MONOCYTES # (AUTO) 1.1 /CMM (0.1-1.30); MONOCYTES % (AUTO) 2.8 % (2.0-12.0); NEUTROPHILS # (AUTO) 37.6 /CMM (1.8-8.9); NEUTROPHILS % (AUTO) 93.7 % (43.0-81.0); PLATELET COUNT (AUTO) 250 /CMM (150-450); RDW COEFFICIENT OF VARIATION 14.8 (11.5-15.0); RED BLOOD CELL COUNT(AUTO) 4.24 MIL/uL (4.5-6.0)
[2016-10-14] MEDS ORDERED: DIGOXIN INJ 0.5 MG/2 ML AMPUL ONE (22:50)
[2016-10-14 23:00] LABS: CALCIUM, SERUM 8.7 mg/dL (8.5-10.1); CARBON DIOXIDE 35 mmol/L (21-32); CHLORIDE 108 mmol/L (98-107); CREATININE 2.2 mg/dL (0.6-1.3); GLUCOSE 117 mg/dL (74-106); POTASSIUM 4.5 mmol/L (3.5-5.1); SODIUM SERUM 142 mmol/L (136-145); UREA NITROGEN, BLOOD 33 mg/dL (7-18)
[2016-10-14] MEDS ORDERED: DIGOXIN INJ 0.5 MG/2 ML AMPUL IV ONE (23:00)
[2016-10-14 23:01] LABS: WHITE BLOOD COUNT (AUTO) 40.1 K/uL (4.3-11.0)
[2016-10-14 23:07] LABS: TROPONIN I < 0.017 ng/mL (0.00-0.056)
[2016-10-14 23:12] LABS: THYROID STIMULATING HORMONE 2.673 uIU/mL (0.358-3.74)
[2016-10-14 23:13] LABS: ALANINE AMINOTRANSFERASE 43 U/L (12-78); ALBUMIN 1.6 g/dL (3.4-5.0); ALKALINE PHOSPHATASE 102 U/L (46-116); ASPARTATE AMINOTRANSFERASE 49 U/L (15-37); B-TYPE NATRIURETIC PEPTIDE 6481 PG/ML (0-125); BILIRUBIN,DIRECT 0.1 mg/dL (0.0-0.2); BILIRUBIN,TOTAL 0.4 mg/dL (0.2-1.0); TOTAL PROTEIN, SERUM 6.5 g/dL (6.4-8.2)
--- NOTE | 2016-10-14 23:22 | NUR ---
CONDOM CATHERTER APPLIED PER MD PANDA REQUEST WILL CONTINUE TO MONITOR.
[2016-10-14] MEDS ORDERED: CEFTRIAXONE 1GM BAG (ER ONLY) 1 GM/50 ML PIGGYBACK IV ONE (23:30)
--- NOTE | 2016-10-14 23:35 | NUR ---
PT GOING TO 113-1 TELE
[2016-10-14 23:39] LABS: INR 1.17 (0.87-1.13); PROTHROMBIN TIME 12.7 SECS (9.5-12.7)
[2016-10-14 23:42] LABS: BAND % (MANUAL) 7 % (0.0-5.0); LYMPHOCYTES % (MANUAL) 8 % (16-48); MONOCYTES % (MANUAL) 3 % (0-11.0); NEUTROPHILS % (MANUAL) 82 (42-76)
[2016-10-14 23:43] LABS: ANISOCYTOSIS 1+; PLATELET ESTIMATE ADEQU
--- NOTE | 2016-10-14 23:55 | NUR ---
CALLED [facility]UD[facility] AND REQUESTED READ ON X RAY
[2016-10-15] MEDS ORDERED: IV SET PRIMARY 1 EA INFUS.SET MC ONE (00:01)
[2016-10-15] MEDS ORDERED: CEFTRIAXONE 1GM BAG (ER ONLY) 50 ML IV ONE (00:01)
[2016-10-15 00:41] VITALS: BP 109/67
[2016-10-15] MEDS ORDERED: LORAZEPAM INJ 2 MG/ML VIAL IV PRN (01:00)
[2016-10-15] MEDS ORDERED: IV NS 0.9% 1,000 ML BAG IV PRN (01:00)
[2016-10-15] MEDS ORDERED: CEFEPIME 1 GM VIAL IV SCH (01:00)
--- NOTE | 2016-10-15 01:00 | NUR ---
APPRENTICE NOTE ADMITTED 86 YEARS OLD MALE PT WITH THE DX OF A FIB WITH RVR BY DR CALLAWAY. PT IS ALOC. EYES OPEN. NO VERBAL RESPONSE. NO DISTRESS OR DISCOMFORT NOTED. ON 2L O2 VIA N/C O2 SAT 96%. NO S/S OF PAIN NOTED. H/L IN LFA #18 G INTACT AND PATENT. SKIN ASSESSMENT DONE, PICTURES TAKEN AND PLACE THEM IN THE CHART. F/C INSERTED, NOTED YELLOWISH, CLOUDY WITH ODOR URINE . SPECIMEN COLLECTED AND SENT TO LAB. ON TELE A FIB UNCONTROLLED WITH RVR HR IN 160'S. SIDE RAILS UP X 3 AND CALL LIGHT WITHIN REACH. CONTINUE TO MONITOR HIM.
[2016-10-15] MEDS ORDERED: IV SET PRIMARY PUMP SET 1 EA INFUS.SET MC ONE (01:16)
[2016-10-15] MEDS ORDERED: IPRA0.2S49 NEB (01:16)
[2016-10-15] MEDS ORDERED: ALBU2.5V38 NEB (01:16)
[2016-10-15] MEDS ORDERED: SECONDARY IV SET 1 EA INFUS.SET MC ONE (01:16)
[2016-10-15] MEDS ORDERED: CHOL200016 PO (01:16)
[2016-10-15] MEDS ORDERED: ACET650T10 PO (01:16)
[2016-10-15] MEDS ORDERED: MAGN400O6 GT (01:16)
--- NOTE | 2016-10-15 01:22 | NUR ---
GARAGE ATTENDANT NOTE START IVF NS @ 75 ML/HR ORDERED, NO S/S OF INFILTRATION NOTED. ALSO GIVEN ATIVAN 0.25 MG PT IS RESTLESS. CONTINUE TO MONITOR HIM.
[2016-10-15] MEDS ORDERED: VANCOMYCIN 1 GM in IV D5W 250 ML IV ONE ×2 (01:30→15:00)
[2016-10-15] MEDS ORDERED: IV D5W 250 ML IV ONE (01:35)
[2016-10-15] MEDS ORDERED: VANCOMYCIN 1 GM VIAL ONE (01:35)
--- NOTE | 2016-10-15 01:35 | NUR ---
ASSEMBLER CONVERTIBLE TOP NOTE VANCO 1G IV HUNGED ORDERED.
[2016-10-15] MEDS ORDERED: IV D5W 50 ML IV ONE (01:36)
[2016-10-15] MEDS ORDERED: CEFEPIME 1 GM VIAL ONE (01:50)
[2016-10-15] MEDS ORDERED: CEFEPIME 1 GM in IV D5W 50 ML IV SCH ×2 (02:00→10:17)
[2016-10-15 02:06] LABS: APPEARANCE,URINE CLOUDY (CLEAR); BILIRUBIN,URINE NEGATIVE (NEGATIVE); BLOOD, URINE 3+ Ery/uL (NEGATIVE); COLOR,URINE YELLOW (YELLOW); KETONES,URINE NEGATIVE (NEGATIVE); LEUKOCYTE ESTERASE ,URINE 2+ (NEGATIVE); NITRITE, URINE NEGATIVE (NEGATIVE); PROTEIN,URINE 1+ mg/dl (NEGATIVE); UGLUCOSE NEGATIVE (NEGATIVE); UROBILINOGEN,URINE 0.2 EU/dL (0.2)
--- NOTE | 2016-10-15 02:16 | NUR ---
SHIPPING & RECEIVING LEAD NOTE CHARGE NURSE GAVE DIGOXIN 0.25 MG IVP DUE TO HIGH HR IN 170'S. CONTINUE TO MONITOR.
[2016-10-15 02:18] LABS: ADD URINE CULTURE YES; BACTERIA,URINE Many /HPF (None Seen); SQUAMOUS EPITHELIAL CELL,UR Rare /HPF (None Seen); WBC,URINE 51-80 /HPF (0-3)
[2016-10-15 02:19] LABS: CALCIUM OXALATE CRYSTALS,UR Rare /HPF (None Seen)
[2016-10-15] MEDS ORDERED: DIGOXIN INJ 0.5 MG/2 ML AMPUL IV ONE (02:30)
--- NOTE | 2016-10-15 03:22 | NUR ---
RN NOTES: NOTED PATIENT'S HEART RATE IS SUSTAINING AT 160'S-170'S, PT NOTED TO BE ASYMPTOMATIC, VS STABLE AT THIS TIME. CALLED DR. CALLAWAY AND RELAYED PT'S CONDITION. PER MD TO GIVE ANOTHER 0.25 MG IVP OF DIGOXIN. NOTED AND CARRIED OUT. PER MD TO KEEP PATIENT NPO. NOTED AND CARRIED OUT. PRIMARY RN EFREN AWARE.
--- NOTE | 2016-10-15 03:30 | NUR ---
MS RN NOTE PT HAS TEMP 100.9 RECTALLY. BODY COOLING MEASURES APPLIED. TEMP CAME DOWN TO 98.6. CONTINUE TO MONITOR HIM.
[2016-10-15 04:00] VITALS: BP 104/44
--- NOTE | 2016-10-15 04:43 | NUR ---
COMPUTER AIDED DRAFTER NOTE ON TELE A FIB HR 118 TO 140'S. PT IN NO DISTRESS NOTED.
--- NOTE | 2016-10-15 06:35 | NUR ---
VIDEO PRODUCTION ASSISTANT NOTE PT IN BED ASLEEP, AROUSABLE. NO DISTRESS OR DISCOMFORT NOTED. NO TEMP NOTED AT THIS TIME. IVF INFUSING WELL, NO S/S OF INFILTRATION NOTED. ON TELE A FIB HR 130'S. F/C INTACT AND PATENT DRAINING YELLOWISH CLOUDY URINE. REPOSITION HIM Q2H. SIDE RAILS UP X 3 AND CALL LIGHT WITHIN REACH. WILL ENDORSE TO DAY SHIFT NURSE FOR CONTINUE TO CARE.
--- NOTE | 2016-10-15 07:15 | NUR ---
RN INITIAL NOTE RECEIVED PT IN BED, SLEEPING. PT IS AFIB ON TELE MONITOR, HR 136. PT IS ON 2L NASAL CANULA. RESPIRATIONS ARE EVEN AND UNLABORED. NO S/S OF RESPIRATORY DISTRESS OR SOB. SATING WELL. OSORIO CATHETER DRAINING TO GRAVITY. PT HAS NPO ORDERS. SKIN IS WARM AND DRY TO TOUCH. IV SITE FLUSHED AND PATENT. NORMAL SALINE RUNNING AT 70ML/HR. SAFETY PRECAUTIONS IN PLACE. BED IN LOCKED, LOW POSITION, TWO SIDE RAILS UP. CALL LIGHT WITHIN REACH. WILL CONTINUE TO MONITOR.
[2016-10-15 08:00] VITALS: BP 91/46
[2016-10-15 08:02] LABS: EOSINOPHILS # (AUTO) 0.1 /CMM (0.0-0.7); EOSINOPHILS % (AUTO) 0.2 % (0.0-6.0); HEMATOCRIT 41 % (39-51); HEMOGLOBIN 13.2 g/dL (13.5-17.5); LYMPHOCYTES # (AUTO) 0.8 /CMM (0.8-4.8); LYMPHOCYTES % (AUTO) 1.9 % (20.0-44.0); MEAN CORPUSCULAR HEMOGLOBIN 28 PG (26.0-33.0); MEAN CORPUSCULAR HGB CONC 32 g/dl (31.0-36.0); MEAN CORPUSCULAR VOLUME 88 fL (80-96); MONOCYTES # (AUTO) 1.2 /CMM (0.1-1.30); MONOCYTES % (AUTO) 2.8 % (2.0-12.0); NEUTROPHILS # (AUTO) 40.9 /CMM (1.8-8.9); NEUTROPHILS % (AUTO) 95.1 % (43.0-81.0); PLATELET COUNT (AUTO) 170 /CMM (150-450); RDW COEFFICIENT OF VARIATION 14.6 (11.5-15.0); RED BLOOD CELL COUNT(AUTO) 4.69 MIL/uL (4.5-6.0)
[2016-10-15 08:52] LABS: BILIRUBIN,TOTAL 0.4 mg/dL (0.2-1.0); CALCIUM, SERUM 8.1 mg/dL (8.5-10.1); CREATININE 2.2 mg/dL (0.6-1.3); POTASSIUM 3.9 mmol/L (3.5-5.1); TOTAL PROTEIN, SERUM 5.8 g/dL (6.4-8.2)
[2016-10-15 08:55] LABS: ALBUMIN 1.4 g/dL (3.4-5.0)
[2016-10-15] MEDS: HEPARIN SODIUM, PORCINE 5000 UNITS/1 ML VIAL SQ SCH ×2 (09:00→21:14)
[2016-10-15] MEDS: IV D5/ 0.9% NACL 1,000 ML IV SCH ×3 (09:00→21:13)
[2016-10-15 09:30] LABS: THYROID STIMULATING HORMONE 2.663 uIU/mL (0.358-3.74)
[2016-10-15] MEDS: PANTOPRAZOLE 40 MG VIAL IV SCH (09:46)
[2016-10-15] MEDS ORDERED: FEE PK DOSING 1 MIN EA MC ONE (10:00)
[2016-10-15 10:19] LABS: BAND % (MANUAL) 10 % (0.0-5.0); NEUTROPHILS % (MANUAL) 79 (42-76)
[2016-10-15 10:20] LABS: LYMPHOCYTES % (MANUAL) 6 % (16-48); METAMYELOCYTES % 1 % (0-0); MONOCYTES % (MANUAL) 4 % (0-11.0); PLATELET ESTIMATE ADEQUATE
[2016-10-15 10:50] LABS: MAGNESIUM 1.7 mg/dL (1.8-2.4); PHOSPHORUS 2.9 mg/dL (2.5-4.9)
--- NOTE | 2016-10-15 11:36 | NUR ---
WOUND CARE CONSULT: PT PRESENTS WITH MULTIPLE SKIN ISSUES INCLUDING ULCERS TO BILATERAL HEELS AND RT LATERAL ANKLE, AND RT LATERAL FOOT INTACT DEEP TISSUE INJURY, PRESENT ON ADMISSION. PT ON JO ISOFLEX LOW AIRLOSS BED. PT TO BE TURNED AND REPOSITIONED EVERY 2 HRS PT CONDITION PERMITS, HEELS FLOATED. PT IS VERY THIN AND BONY WITH FRAGILE SKIN THAT TEARS EASILY. MULTIPLE BRUISES NOTED. ALL SKIN AND WOUND RECOMMENDATIONS DISCUSSED WITH NURSING STAFF. PER DR CALLAWAY, NO SURGICAL OR PODIATRY CONSULTS ARE TO BE CALLED FOR PT. WILL SEE PRN. VILLATORO IN AGREEMENT WITH PLAN OF CARE. Addendum: 10/15/16 at 1140 by CHINMAY LOPEZ WNDNU Amended: Links added.
[2016-10-15 12:00] VITALS: BP 89/44
[2016-10-15] MEDS ORDERED: HYDROGEL DRESSING 90 GM TUBE TP PRN (12:00)
[2016-10-15] MEDS ORDERED: Z GUARD REMEDY 2 OZ OINT TP PRN (12:00)
[2016-10-15] MEDS: Z GUARD REMEDY 2 OZ OINT TP SCH (12:08)
[2016-10-15] MEDS: HYDROGEL DRESSING 90 GM TUBE TP SCH (12:08)
[2016-10-15] MEDS ORDERED: DIGOXIN INJ 0.5 MG/2 ML AMPUL IV SCH (13:00)
[2016-10-15 13:25] LABS: GLUCOSE,BODY FLUID 111 mg/dL; PROTEIN, BODY FLUID 3.3 G/DL
[2016-10-15] MEDS: ALBUTEROL FS 2.5 MG/0.5 ML VIAL.NEB NEB SCH ×2 (15:10→23:38)
[2016-10-15 16:00] VITALS: BP 122/57
[2016-10-15] MEDS ORDERED: METRONIDAZOLE 500 MG TABLET PO SCH (16:00)
[2016-10-15 16:08] LABS: APPEARANCE,SPUN,BODY FLUID CLEAR (CLEAR); TOTAL VOLUME,BODY FLUID 1.5 mL
[2016-10-15 16:09] LABS: WBC, BODY FLUID 180 /cu. mm. (0-200)
[2016-10-15 17:41] LABS: POLYNUCLEAR, BODY FLUID 13 % (0-25)
[2016-10-15] MEDS: METRONIDAZOLE 500MG/ NS 100ML 500 MG in PREMIX 1 EA IV SCH (18:04)
--- NOTE | 2016-10-15 19:16 | NUR ---
RN CLOSING NOTE ALL MD ORDERS CARRIED OUT. PT KEPT CLEAN AND DRY. SAFETY PRECAUTIONS IN PLACE AT ALL TIMES. REPORT GIVEN TO PM RN FOR FCO,.
--- NOTE | 2016-10-15 19:30 | NUR ---
RN INITIAL NOTE RECEIVED REPORT FROM NURSE YOUNG. PATIENT IN BED, SLEEPING AT THIS TIME, EYES CLOSED, EASILY AROUSABLE TO TACTILE STIMULI. PATIENT IS ALERT X1 TO TACTILE STIMULI, UNABLE TO RESPOND VERBALLY, OR FOLLOW ANY VERBAL COMMANDS. TELEMETRY MONITORING REVEALS AFIB, HR 92 AT THIS TIME. ERNA MIDLINE PATENT AND INTACT, FLUSHED WITH NS, NOTED WITH GOOD VENOUS RETURN, FREE FROM ANY S/S OF INFILTRATION OR PHLEBITIS. CALL LIGHT LEFT WITHIN EASY REACH, BED IN LOWEST AND LOCKED POSITION. WILL CONTINUE TO CLOSELY MONITOR
[2016-10-15 20:00] VITALS: BP 131/58
[2016-10-16] VITALS: BP 125/67
[2016-10-16] MEDS ORDERED: VANCOMYCIN 1 GM in IV D5W 250 ML IV ONE (02:00)
[2016-10-16] MEDS: METRONIDAZOLE 500MG/ NS 100ML 500 MG in PREMIX 1 EA IV SCH (02:38)
[2016-10-16] MEDS: CEFEPIME 1 GM in IV D5W 50 ML IV SCH (03:00)
--- NOTE | 2016-10-16 03:00 | NUR ---
RN NOTES CEFEPIME NOT FOUND IN MEDICATION ROOM. ORDER FAXED TO [facility] FOR OVERRIDE. WILL ADMINISTER ORDERED
[2016-10-16 04:00] VITALS: BP 153/50
[2016-10-16] MEDS ORDERED: CEFEPIME 1 GM VIAL ONE (04:09)
[2016-10-16] MEDS ORDERED: IV D5W 50 ML IV ONE (04:31)
[2016-10-16] MEDS ORDERED: SECONDARY IV SET 1 EA INFUS.SET MC ONE (04:31)
[2016-10-16 06:49] LABS: HEMATOCRIT 32 % (39-51); HEMOGLOBIN 10.3 g/dL (13.5-17.5); LYMPHOCYTES # (AUTO) 1.3 /CMM (0.8-4.8); LYMPHOCYTES % (AUTO) 4.3 % (20.0-44.0); MEAN CORPUSCULAR HEMOGLOBIN 29 PG (26.0-33.0); MEAN CORPUSCULAR HGB CONC 32 g/dl (31.0-36.0); MEAN CORPUSCULAR VOLUME 89 fL (80-96); MONOCYTES # (AUTO) 0.9 /CMM (0.1-1.30); MONOCYTES % (AUTO) 3.1 % (2.0-12.0); NEUTROPHILS # (AUTO) 27.3 /CMM (1.8-8.9); NEUTROPHILS % (AUTO) 92.6 % (43.0-81.0); PLATELET COUNT (AUTO) 203 /CMM (150-450); RDW COEFFICIENT OF VARIATION 14.9 (11.5-15.0); WHITE BLOOD COUNT (AUTO) 29.5 K/uL (4.3-11.0)
--- NOTE | 2016-10-16 07:07 | NUR ---
RN NOTES PATIENT RESTING IN BED, APPEARS COMFORTABLE. NO BM THIS SHIFT, UNABLE TO OBTAIN STOOL SAMPLE FOR C.DIFF TESTING. WILL ENDORSE THE PATIENT TO THE AM SHIFT NURSE FOR FCO
[2016-10-16 07:09] LABS: CALCIUM, SERUM 8.3 mg/dL (8.5-10.1); CREATININE 1.8 mg/dL (0.6-1.3); MAGNESIUM 1.8 mg/dL (1.8-2.4); POTASSIUM 4.4 mmol/L (3.5-5.1); TOTAL PROTEIN, SERUM 5.5 g/dL (6.4-8.2)
--- NOTE | 2016-10-16 07:15 | NUR ---
RN INITIAL NOTE PT RECEIVED IN BED SLEEPING, EASILY AROUSED. NON-VERBAL. ORIENTED TO NAME. RESPIRATIONS ARE EVEN AND NON-LABORED. SATING WELL ON 2L NASAL CANULA. NO S/S OF RESPIRATORY DISTRESS OR SOB. TELE MONITOR REVEALS A-FIB. OSORIO CATHETER DRAINING TO GRAVITY. LEFT UPPER MIDLINE FLUSHED AND PATENT WITH GOOD BLOOD RETURN. SKIN IS WARM AND DRY TO TOUCH. SAFETY PRECAUTIONS IN PLACE AT ALL TIMES. BED IN LOCKED, LOW POSITION. TWO SIDE RAILS UP. CALL LIGHT WITHIN EASY REACH. WILL MONITOR CLOSELY.
[2016-10-16 07:21] LABS: BILIRUBIN,TOTAL 0.4 mg/dL (0.2-1.0)
[2016-10-16 07:31] LABS: ALBUMIN 1.3 g/dL (3.4-5.0)
[2016-10-16 08:00] VITALS: BP 117/60
[2016-10-16] MEDS: ALBUTEROL FS 2.5 MG/0.5 ML VIAL.NEB NEB SCH ×2 (08:14→15:23)
[2016-10-16 08:20] LABS: BAND % (MANUAL) 3 % (0.0-5.0); LYMPHOCYTES % (MANUAL) 4 % (16-48); MONOCYTES % (MANUAL) 3 % (0-11.0); NEUTROPHILS % (MANUAL) 90 (42-76)
[2016-10-16] MEDS: PANTOPRAZOLE 40 MG VIAL IV SCH (08:22)
[2016-10-16 08:23] LABS: PLATELET ESTIMATE ADEQUATE
[2016-10-16] MEDS: HEPARIN SODIUM, PORCINE 5000 UNITS/1 ML VIAL SQ SCH (08:24)
[2016-10-16] MEDS ORDERED: DIGOXIN 0.125 MG TABLET PO ONE (09:00)
[2016-10-16] MEDS: HYDROGEL DRESSING 90 GM TUBE TP SCH (09:01)
[2016-10-16] MEDS: Z GUARD REMEDY 2 OZ OINT TP SCH (09:01)
[2016-10-16] MEDS ORDERED: ASPIRIN 81 MG TAB.CHEW NG SCH (10:00)
[2016-10-16] MEDS ORDERED: MULTIVITAMINS,THERAPEUTIC 1 UDTAB TABLET NG SCH (10:00)
[2016-10-16] MEDS ORDERED: METRONIDAZOLE 500 MG TABLET NG SCH (10:30)
[2016-10-16] MEDS ORDERED: METRONIDAZOLE 500 MG TABLET PO SCH (10:30)
[2016-10-16] MEDS ORDERED: FIBERSOURCE HN 1,000 ML BOTTLE GT PRN (11:30)
[2016-10-16 12:00] VITALS: BP 122/61
--- NOTE | 2016-10-16 12:00 | NUR ---
RN NOTE NG TUBE PLACED FOR MEDICATIONS AND FEEDING PER MD ORDERS. PT TOLERATED PROCEDURE WELL. CXR ORDERED TO VERIFY PLACEMENT
[2016-10-16] MEDS: MORPHINE SULFATE INJ 2 MG/ML DISP.SYRIN IV PRN ×2 (12:58→17:39)
[2016-10-16] MEDS ORDERED: IV D5/ 0.9% NACL 1,000 ML IV ONE (13:30)
--- NOTE | 2016-10-16 14:20 | NUR ---
RN NOTE NGT D/C'D PER MD, AT FAMILY'S REQUEST. HOSPICE ORDERS ENTERED. Addendum: 10/16/16 at 1448 by HANNAH AYON RN COOPER GIORDANO D/C. NGT D/C'D
--- NOTE | 2016-10-16 14:40 | NUR ---
FAX PT. INFO TO [facility] PER MD ORDER.
[2016-10-16] MEDS ORDERED: VANCOMYCIN 0.75 GM in IV D5W 250 ML IV SCH (15:00)
[2016-10-16 16:00] VITALS: BP 128/59
--- NOTE | 2016-10-16 19:14 | NUR ---
RN CLOSING NOTE ALL MD ORDERS CARRIED OUT. PATIENT KEPT CLEAN AND DRY. SAFETY PRECAUTIONS IN PLACE AT ALL TIMES. REPORT WILL BE GIVEN TO PM RN FOR FCO
[2016-10-16 20:00] VITALS: BP 108/79
[2016-10-17] VITALS: BP 116/81
[2016-10-17] MEDS: ALBUTEROL FS 2.5 MG/0.5 ML VIAL.NEB NEB SCH ×2 (00:10→07:11)
[2016-10-17] MEDS: CEFEPIME 1 GM in IV D5W 50 ML IV SCH (03:21)
[2016-10-17 04:00] VITALS: BP 104/41
[2016-10-17 06:54] LABS: BASOPHILS # (AUTO) 0.1 /CMM (0.0-0.2); BASOPHILS % (AUTO) 0.3 % (0.0-2.0); EOSINOPHILS % (AUTO) 0.1 % (0.0-6.0); HEMATOCRIT 32 % (39-51); HEMOGLOBIN 10.4 g/dL (13.5-17.5); LYMPHOCYTES # (AUTO) 0.8 /CMM (0.8-4.8); LYMPHOCYTES % (AUTO) 3.1 % (20.0-44.0); MEAN CORPUSCULAR HEMOGLOBIN 28 PG (26.0-33.0); MEAN CORPUSCULAR HGB CONC 32 g/dl (31.0-36.0); MEAN CORPUSCULAR VOLUME 88 fL (80-96); MONOCYTES # (AUTO) 0.8 /CMM (0.1-1.30); MONOCYTES % (AUTO) 3.5 % (2.0-12.0); NEUTROPHILS # (AUTO) 22.4 /CMM (1.8-8.9); PLATELET COUNT (AUTO) 204 /CMM (150-450); RDW COEFFICIENT OF VARIATION 15.5 (11.5-15.0); RED BLOOD CELL COUNT(AUTO) 3.68 MIL/uL (4.5-6.0); WHITE BLOOD COUNT (AUTO) 24.1 K/uL (4.3-11.0)
--- NOTE | 2016-10-17 07:00 | NUR ---
Received pt in bed. no c/o pain,no s/s of distress.No s/s of distress on 2lpm via N.Con tele monitoring with A.fib.i.v site cdi and patent.on NPO status.will continue to monitor for changes.safety measures in place bed in low and locked position.
[2016-10-17 08:00] VITALS: BP 116/88
[2016-10-17 08:29] LABS: CALCIUM, SERUM 8.3 mg/dL (8.5-10.1); CREATININE 1.5 mg/dL (0.6-1.3); POTASSIUM 4.8 mmol/L (3.5-5.1)
[2016-10-17] MEDS: Z GUARD REMEDY 2 OZ OINT TP SCH (09:00)
[2016-10-17] MEDS ORDERED: ZINC SULFATE 220 MG CAPSULE NG SCH (09:00)
[2016-10-17] MEDS ORDERED: ASCORBIC ACID 500 MG TABLET NG SCH (09:00)
[2016-10-17 12:00] VITALS: BP 117/90
--- NOTE | 2016-10-17 15:30 | NUR ---
pt d/c to [facility].all m.d orders noted and carried out.all discharge teachings and belongings provided to the patient.
== END 2016-10-17 16:25 | disposition hospice, inpatient (51) | DRG 871 ==
LOC: ER 20:55 → TELE1 23:32
PROVIDERS: ADMIT Internal Medicine; ATTEND Internal Medicine
PROC: 0W993ZZ Drainage of Right Pleural Cavity, Percutaneous Approach (ICD-10-PCS; principal; 2016-10-15)
PROC: 05H633Z Insertion of Infusion Device into Left Subclavian Vein, Percutaneous Approach (ICD-10-PCS; 2016-10-15)
DX: A41.51 Sepsis due to Escherichia coli [E. coli] (principal); E43 Unspecified severe protein-calorie malnutrition; G93.40 Encephalopathy, unspecified; J69.0 Pneumonitis due to inhalation of food and vomit; N17.0 Acute kidney failure with tubular necrosis; R65.21 Severe sepsis with septic shock; J96.90 Respiratory failure, unspecified, unspecified whether with hypoxia or hypercapnia; L89.513 Pressure ulcer of right ankle, stage 3; N39.0 Urinary tract infection, site not specified; E87.0 Hyperosmolality and hypernatremia; J98.11 Atelectasis; Z68.1 Body mass index [BMI] 19.9 or less, adult; A04.7 Enterocolitis due to Clostridium difficile; F41.9 Anxiety disorder, unspecified; F03.90 Unspecified dementia, unspecified severity, without behavioral disturbance, psychotic disturbance, mood disturbance, and anxiety; D64.9 Anemia, unspecified; E03.9 Hypothyroidism, unspecified; K21.9 Gastro-esophageal reflux disease without esophagitis; Z66 Do not resuscitate; Z86.73 Personal history of transient ischemic attack (TIA), and cerebral infarction without residual deficits; G35 Multiple sclerosis; I73.9 Peripheral vascular disease, unspecified; R13.10 Dysphagia, unspecified; I48.91 Unspecified atrial fibrillation; E86.0 Dehydration; I50.9 Heart failure, unspecified; I11.0 Hypertensive heart disease with heart failure; Z51.5 Encounter for palliative care; L89.620 Pressure ulcer of left heel, unstageable; L89.892 Pressure ulcer of other site, stage 2; S41.101A Unspecified open wound of right upper arm, initial encounter; X58.XXXA Exposure to other specified factors, initial encounter; Y93.9 Activity, unspecified; Y92.129 Unspecified place in nursing home as the place of occurrence of the external cause; S40.022A Contusion of left upper arm, initial encounter; S40.021A Contusion of right upper arm, initial encounter; L53.8 Other specified erythematous conditions; F09 Unspecified mental disorder due to known physiological condition; Z22.322 Carrier or suspected carrier of Methicillin resistant Staphylococcus aureus; Z79.899 Other long term (current) drug therapy
CPT/HCPCS: 36415; 71010-TC; 76942-TC; 80048-TC; 80053-TC; 80076-TC; 80202-TC; 81000-TC; 83735-TC; 83880; 84100-TC; 84439-TC; 84443-TC; 84484-TC; 85025-TC; 85378-TC; 85730-TC; 87040-TC; 87070-TC; 87081-TC; 87086-TC; 87186-TC; 88305-TC; 88312-TC; 88342; 89051-TC; 92521; 94799-TC; A4216; A4606; A6248; A6402; C9113; J0692; J0696; J1160; J1644; J2060; J2270; J3370; J3490; J7030; J7042; J7060; Z7610